=== PATIENT | male | born 1955 ===

== ENCOUNTER → 2018-08-28 | Outpatient (CLI) | payer OTHER ==
[2018-08-28 13:30] LABS: Albumin 3.5 g/dL (3.4-5.0); Bilirubin, Direct 0.8 mg/dL (0-0.2); Total Protein 8.4 g/dL (6.4-8.2)
[2018-08-31 10:39] LABS: Hepatitis A Total Antibody Positive
== END | disposition home or self-care (01) ==
LOC: LAB 11:32
PROVIDERS: ATTEND Physician Assistant Medical
DX: R97.20 Elevated prostate specific antigen [PSA] (principal); B27.90 Infectious mononucleosis, unspecified without complication; B15.9 Hepatitis A without hepatic coma
CPT/HCPCS: 36415; 80076; 83690; 84153; 84443; 86308; 86644; 86645; 86708